=== PATIENT | female | born 1990 | race Caucasian/White ===

== ENCOUNTER 2020-08-21 23:10 | Emergency (ER) | payer OTHER ==
[~2020-08-21] VITALS: Ht 172.7 cm; Wt 117.4 kg
[2020-08-22 01:38] LABS: BASO # 0.1 10^3/uL (0.0-0.2); BASO % 0.5 % (0.0-1.0); EOS # 0.3 10^3/uL (0.0-0.5); EOS % 2.6 % (0.0-3.0); HEMATOCRIT 43.6 % (36.0-47.0); LYMPH # 3.4 10^3/uL (1.5-5.0); LYMPH % 30.2 % (24.0-44.0); MEAN CORPUSCULAR HEMOGLOBIN 27.7 pg (27.0-33.0); MEAN CORPUSCULAR HGB CONC 32.1 g/dl (32.0-36.5); MEAN CORPUSCULAR VOLUME 86.2 fl (80.0-96.0); MONO # 0.8 10^3/uL (0.0-0.8); MONO % 7.1 % (0.0-5.0); NEUTROPHILS # 6.7 10^3/uL (1.5-8.5); NEUTROPHILS % 59.2 % (36.0-66.0); PLATELET COUNT, AUTOMATED 351 10^3/uL (150-450); RED BLOOD COUNT 5.06 10^6/uL (4.00-5.40); WHITE BLOOD COUNT 11.4 10^3/uL (4.0-10.0)
[2020-08-22 02:19] VITALS: BP 139/85
== END 2020-08-22 02:26 | disposition home or self-care (01) ==
LOC: M ED 23:10
DX: Z32.01 Encounter for pregnancy test, result positive (principal); N93.9 Abnormal uterine and vaginal bleeding, unspecified

== ENCOUNTER → 2020-08-24 | Outpatient (CLI) | payer OTHER | LOC: M LAB 10:22 | PROVIDERS: ATTEND Obstetrics & Gynecology | DX: O99.891 Other specified diseases and conditions complicating pregnancy (principal); N89.8 Other specified noninflammatory disorders of vagina ==

== ENCOUNTER 2021-03-18 13:29 | Emergency (ER) | payer OTHER ==
[~2021-03-18] VITALS: Ht 172.7 cm; Wt 111.4 kg
[2021-03-18 13:29] VITALS: BP 117/78
[2021-03-18] MEDS ORDERED: SYNT50TA PO (13:40)
[2021-03-18] MEDS ORDERED: PRENTAB53 PO (13:40)
[2021-03-18] MEDS ORDERED: PRED5TA (13:40)
[2021-03-18] MEDS ORDERED: SYNT25TA PO (13:40)
[2021-03-18 14:10] LABS: BASO % 0.4 % (0.0-1.0); EOS # 0.2 10^3/uL (0.0-0.5); HEMATOCRIT 47.6 % (36.0-47.0); HEMOGLOBIN 15.6 g/dl (12.0-15.5); LYMPH % 26.4 % (24.0-44.0); MEAN CORPUSCULAR HEMOGLOBIN 29.5 pg (27.0-33.0); MEAN CORPUSCULAR HGB CONC 32.8 g/dl (32.0-36.5); MONO # 0.7 10^3/uL (0.0-0.8); MONO % 9.7 % (2.0-8.0); NEUTROPHILS # 4.6 10^3/uL (1.5-8.5); PLATELET COUNT, AUTOMATED 319 10^3/uL (150-450); RED BLOOD COUNT 5.29 10^6/uL (4.00-5.40); WHITE BLOOD COUNT 7.6 10^3/uL (4.0-10.0)
[2021-03-18 14:38] LABS: BLOOD UREA NITROGEN 5 MG/DL (7-18); CALCIUM LEVEL 9.7 MG/DL (8.5-10.1); CARBON DIOXIDE LEVEL 26 MEQ/L (21-32); CHLORIDE LEVEL 108 MEQ/L (98-107); CREATININE FOR GFR 0.64 MG/DL (0.55-1.30); GLOMERULAR FILTRATION RATE > 60.0 (>60); GLUCOSE, FASTING 95 MG/DL (70-100); HCG, SERUM QUANTITATIVE 904 MIU/ML; POTASSIUM SERUM 3.7 MEQ/L (3.5-5.1); SODIUM LEVEL 142 MEQ/L (136-145)
--- NOTE | 2021-03-18 15:03 | REP ---
INDICATION: vaginal bleeding, COMPARISON: None. TECHNIQUE: Transabdominal and transvaginal 1st trimester obstetrical ultrasound with color Doppler evaluation. FINDINGS: Anteverted uterus measures 9.2 x 4.9 x 5.8 cm. Endometrial complex appears thickened and heterogeneous suggesting hemorrhagic debris. No definable intrauterine is identified. The examination was terminated by the patient due to excessive pain. IMPRESSION: Heterogeneous thickened endometrial complex suggesting hemorrhagic debris and no definable intrauterine . Differential diagnosis includes spontaneous in progress and less likely early or ectopic cannot definitively be excluded. Correlation with serial HCG levels recommended. <Electronically signed by Jaspreet Salvador > 03/18/21 [id number]
[2021-03-18] MEDS ORDERED: HYDR-3713 PO (15:36)
== END 2021-03-18 16:08 | disposition home or self-care (01) ==
LOC: M ED 13:29
DX: O03.9 Complete or unspecified spontaneous abortion without complication (principal); Z79.899 Other long term (current) drug therapy

== ENCOUNTER → 2021-03-24 | Outpatient (CLI) | payer OTHER ==
[~2021-03-24] MED LIST: HYDR-3713 PO; PRED5TA; PRENTAB53 PO; SYNT25TA PO; SYNT50TA PO
== END ==
LOC: M LAB 16:32
PROVIDERS: ATTEND Nurse Practitioner Family
DX: O46.90 Antepartum hemorrhage, unspecified, unspecified trimester (principal)

== ENCOUNTER → 2021-04-09 | Outpatient (CLI) | payer OTHER ==
[2021-04-09 09:45] LABS: HEMATOCRIT 43.8 % (36.0-47.0); HEMOGLOBIN 14.4 g/dl (12.0-15.5); MEAN CORPUSCULAR HEMOGLOBIN 28.9 pg (27.0-33.0); MEAN CORPUSCULAR HGB CONC 32.9 g/dl (32.0-36.5); MEAN CORPUSCULAR VOLUME 87.8 fl (80.0-96.0); PLATELET COUNT, AUTOMATED 345 10^3/uL (150-450); RED BLOOD COUNT 4.99 10^6/uL (4.00-5.40); WHITE BLOOD COUNT 6.8 10^3/uL (4.0-10.0)
[2021-04-09 10:10] LABS: HEMOGLOBIN A1c 5.1 %
[2021-04-09 10:28] LABS: ALBUMIN 3.8 GM/DL (3.2-5.2); ALT/SGPT 42 U/L (12-78); BILIRUBIN,TOTAL 0.9 MG/DL (0.2-1.0); BLOOD UREA NITROGEN 13 MG/DL (7-18); CALCIUM LEVEL 9.1 MG/DL (8.5-10.1); CARBON DIOXIDE LEVEL 28 MEQ/L (21-32); CHLORIDE LEVEL 107 MEQ/L (98-107); FREE T4 0.91 NG/DL (0.76-1.46); GLOMERULAR FILTRATION RATE > 60.0 (>60); GLUCOSE, FASTING 95 MG/DL (70-100); HCG, SERUM QUANTITATIVE < 1.0 MIU/ML; POTASSIUM SERUM 4.3 MEQ/L (3.5-5.1); SODIUM LEVEL 139 MEQ/L (136-145); TOTAL PROTEIN 6.8 GM/DL (6.4-8.2)
== END ==
LOC: M LAB 08:22
PROVIDERS: ATTEND Family Medicine
DX: O03.4 Incomplete spontaneous abortion without complication (principal)